=== PATIENT | male | born 1985 | race Caucasian/White ===

== ENCOUNTER 2019-10-17 20:32 | Emergency (ER) | payer SELFPAY ==
[~2019-10-17] VITALS: Ht 170.2 cm; Wt 78.0 kg
[2019-10-17 20:41] VITALS: Ht 170.2 cm; Wt 78.0 kg
[2019-10-17 22:12] VITALS: BP 117/79
== END 2019-10-17 22:12 | disposition home or self-care (01) ==
LOC: ED 20:32
DX: L02.413 Cutaneous abscess of right upper limb (principal)
CPT/HCPCS: J2001

== ENCOUNTER 2019-10-20 06:40 | Emergency (ER) | payer SELFPAY ==
[~2019-10-20] VITALS: Ht 170.2 cm; Wt 78.5 kg
[2019-10-20 06:44] VITALS: BP 106/64; Ht 170.2 cm; Wt 78.5 kg
== END 2019-10-20 07:43 | disposition home or self-care (01) ==
LOC: ED 06:40
DX: L02.413 Cutaneous abscess of right upper limb (principal); F19.10 Other psychoactive substance abuse, uncomplicated; Z48.01 Encounter for change or removal of surgical wound dressing